=== PATIENT | female | born 1995 | race Caucasian/White ===

== ENCOUNTER → 2016-11-18 | Outpatient (CLI) | payer BC ==
--- NOTE | 2016-11-18 17:38 | US ---
EXAMINATION TYPE: US pelvic complete DATE OF EXAM: 11/18/2016 5:10 PM COMPARISON: NONE CLINICAL HISTORY: Pelvic Pain R10.2 N94.6 Dysmenorrhea. Patient has always had irregular cycles and w as on control for 8 months and cycles still remained irregular. TECHNIQUE: TA Date of LMP: 11/09/2016 EXAM MEASUREMENTS: Uterus: 6.9 x 3.9 x 3.8 cm Endometrial Stripe: 0.9 cm Right Ovary: 2.8 x 1.4 x 1.6 cm Left Ovary: 2.3 x 2.2 x 1.4 cm TECHNOLOGIST IMPRESSION: 1. Uterus: Anteverted wnl 2. Endometrium: wnl 3. Right Ovary: wnl 4. Left Ovary: wnl 5. Bilateral Adnexa: wnl 6. Posterior cul-de-sac: wnl IMPRESSION: Normal transabdominal pelvic sonogram.
== END | disposition home or self-care (01) ==
LOC: RADUSMAIN 16:41
PROVIDERS: ATTEND Obstetrics & Gynecology
DX: R10.2 Pelvic and perineal pain (principal); N94.6 Dysmenorrhea, unspecified
CPT/HCPCS: 76856

== ENCOUNTER → 2019-05-09 | Outpatient (CLI) | payer BC ==
--- NOTE | 2019-05-09 10:18 | US ---
EXAMINATION TYPE: US transvaginal DATE OF EXAM: 05/09/2019 COMPARISON: US CLINICAL HISTORY: R10.2 Acute Pelvic Pain. Patient on Depo Provera shot TECHNIQUE: Transvaginal (TV). Date of LMP: 1 year prior EXAM MEASUREMENTS: Uterus: 5.2 x 2.4 x 3.2 cm Endometrial Stripe: 0.4 cm Right Ovary: 2.0 x 1.3 x 1.2cm Left Ovary: 2.9 x 1.7 x 1.5 cm 1. Uterus: Anteverted wnl 2. Endometrium: wnl 3. Right Ovary: wnl 4. Left Ovary: 1.5 cm cyst with the appearance of 2 daughter follicles. This unlikely represents a c omplex cyst or ovarian ectopic . 5. Bilateral Adnexa: wnl 6. Posterior cul-de-sac: wnl IMPRESSION: Multiple peripherally oriented follicles are seen within both ovaries that can be seen in polycystic ovarian syndrome. Additionally there is the appearance of 2 follicles within another foll icle. This most likely represent a dominant physiologic follicle with to daughter follicles, however other considerations are for a complex cyst or less likely ovarian ectopic . Ensure negative serum beta hCG.
== END | disposition home or self-care (01) ==
LOC: RADUSWWP 09:22
PROVIDERS: ATTEND Obstetrics & Gynecology
DX: E28.2 Polycystic ovarian syndrome (principal)
CPT/HCPCS: 76830